=== PATIENT | male | born 2000 | race Two or more races ===

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

== ENCOUNTER 2024-03-10 12:35 | Inpatient (IN) | payer BC, OTHER ==
[~2024-03-10] VITALS: Ht 180.3 cm; Wt 130.1 kg
[2024-03-10] MEDS: MORPHINE SULFATE 4 MG/ML SYR/VIAL IM ONE (15:00)
[2024-03-10 16:18] LABS: Urine Bacteria None Seen /hpf (None Seen)
[2024-03-10] MEDS: TAMSULOSIN HYDROCHLORIDE 0.4 MG CAP PO ONE (16:30)
[2024-03-10] MEDS ORDERED: SODIUM CHLORIDE 0.9% 1,000 ML IV ONE (16:30)
[2024-03-10 16:34] LABS: Urine Amorphous Crystal FEW /hpf (None Seen); Urine Blood 3+ /uL (Negative); Urine Clarity Ex.Turbid (Clear); Urine Color Light-Orange (Yellow); Urine Mucus MODERATE (None Seen); Urine Protein, UAD 2+ (Negative); Urine Specific Gravity 1.033 (1.001-1.035); Urine Urobilinogen Normal (Negative); Urine WBC 1 /hpf (0 - 3); Urine pH 5.5 (5.0-9.0)
[2024-03-10 16:38] LABS: Basophils # (auto) 0 10 ^3/uL (0-0.2); Basophils % (auto) 0.1 % (0.0-2.0); Eosinophils # (auto) 0 10 ^3/uL (0-0.8); Eosinophils % (auto) 0.1 % (0.0-7.0); Hematocrit 46.8 % (41.0-53.0); Hemoglobin 15.4 g/dL (13.5-17.5); Lymphocytes % (auto) 8.6 % (10.0-50.0); Mean Corpuscular Hemoglobin 28.9 pg (28.0-32.0); Mean Corpuscular Volume 87.7 fL (80.0-100.0); Monocytes # (auto) 0.4 10 ^3/uL (0-1.3); Monocytes % (auto) 3.4 % (0.0-12.0); Neutrophils # (auto) 10.5 10 ^3/uL (1.6-8.6); Neutrophils % (auto) 87.8 % (37.0-80.0); Red Blood Cells 5.33 10^6/uL (4.5-5.90); Red Cell Distribution Width 13.5 % (11.8-14.3); White Blood Cell 11.9 10^3/uL (4.4-10.8)
[2024-03-10] MEDS: KETOROLAC TROMETH 30 MG/ML 1ML VIAL IM ONE (16:54)
[2024-03-10 16:58] LABS: Chloride 106 mmol/L (98-107); Potassium 3.9 mmol/L (3.5-5.1); Sodium 137 mmol/L (136-145)
[2024-03-10 16:59] LABS: Anion Gap 6 (5-15); Carbon Dioxide 25 mmol/L (20-30)
[2024-03-10 17:00] LABS: Calcium 9.5 mg/dL (8.7-10.4)
[2024-03-10] MEDS ORDERED: DOCUSATE SOD 100 MG CAP PO PRN (17:00)
[2024-03-10] MEDS ORDERED: ONDANSETRON HCL 4 MG/2 ML VIAL IV PRN (17:00)
[2024-03-10] MEDS: SODIUM CHLORIDE 0.9% 1,000 ML IV SCH (17:00)
[2024-03-10] MEDS ORDERED: MORPHINE SULFATE INJ 2 MG/ml SYRG IV PRN (17:00)
[2024-03-10 17:04] LABS: Glucose 127 mg/dL (74-106)
[2024-03-10 17:05] LABS: BUN/Creatinine Ratio 9.3 (10.0-20.0); Blood Urea Nitrogen 10 mg/dL (9-23); Lipase 38 U/L (12-53)
[2024-03-10] MEDS: SODIUM CHLORIDE 0.9% 1,000 ML IV ONE (17:20)
[2024-03-11] MEDS: KETOROLAC TROMETH 30 MG/ML 1ML VIAL IV SCH
[2024-03-11] MEDS: cefTRIAXone 1GM/50ML D5W 50 ML IV ONE (00:13)
[2024-03-11] MEDS: TAMSULOSIN HYDROCHLORIDE 0.4 MG CAP PO SCH (00:13)
[2024-03-11 04:54] LABS: Basophils # (auto) 0 10 ^3/uL (0-0.2); Basophils % (auto) 0.2 % (0.0-2.0); Eosinophils # (auto) 0 10 ^3/uL (0-0.8); Eosinophils % (auto) 0.3 % (0.0-7.0); Hematocrit 45.8 % (41.0-53.0); Hemoglobin 15.6 g/dL (13.5-17.5); Lymphocytes # (auto) 1.9 10 ^3/uL (0.4-5.4); Lymphocytes % (auto) 20.4 % (10.0-50.0); Mean Corpuscular Hemoglobin 30.2 pg (28.0-32.0); Mean Corpuscular Hgb Conc. 34.1 g/dL (32.0-36.0); Mean Corpuscular Volume 88.3 fL (80.0-100.0); Monocytes # (auto) 0.7 10 ^3/uL (0-1.3); Monocytes % (auto) 7.4 % (0.0-12.0); Neutrophils # (auto) 6.5 10 ^3/uL (1.6-8.6); Neutrophils % (auto) 71.7 % (37.0-80.0); Nucleated Red Blood Cells % 0.2 %; Red Blood Cells 5.19 10^6/uL (4.5-5.90); Red Cell Distribution Width 13.8 % (11.8-14.3); White Blood Cell 9.1 10^3/uL (4.4-10.8)
[2024-03-11 05:13] LABS: Alanine Aminotransferase 38 U/L (7-40); Albumin 4.4 g/dL (3.2-4.8); Alkaline Phosphatase 86 U/L (46-116); Anion Gap 10 (5-15); Aspartate Aminotransferase 31 U/L (13-40); BUN/Creatinine Ratio 8.2 (10.0-20.0); Bilirubin, Total 1.9 mg/dL (0.2-1.0); Blood Urea Nitrogen 7 mg/dL (9-23); Calcium 9.2 mg/dL (8.5-10.1); Carbon Dioxide 23 mmol/L (20-30); Chloride 105 mmol/L (98-107); Glucose 98 mg/dL (74-106); Potassium 3.9 mmol/L (3.5-5.1); Sodium 138 mmol/L (136-145); Total Protein 7.3 g/dL (5.7-8.2)
[2024-03-11 09:00] VITALS: BP 149/85; PULSE 98; RESP 20; TEMP 98.9; O2SAT 97
[2024-03-11] MEDS: cefTRIAXone 1GM/50ML D5W 50 ML IV SCH (11:09)
[2024-03-11 13:00] VITALS: BP 115/63; PULSE 96; RESP 20; TEMP 99; O2SAT 98
[2024-03-11] MEDS ORDERED: MANNITOL FTV 25% 12.5 GM/50 ML 50 ML IV ONE (13:00)
[2024-03-11 13:52] VITALS: BP 149/85; PULSE 98; RESP 20; TEMP 98.9; O2SAT 97
[2024-03-11] MEDS ORDERED: TAMS-35 PO (14:16)
[2024-03-11 17:00] VITALS: BP 118/75; PULSE 90; RESP 20; TEMP 98.7; O2SAT 98
[2024-03-11 17:43] VITALS: BP 118/75; PULSE 90; RESP 20; TEMP 98.7; O2SAT 98
== END 2024-03-11 18:45 | disposition home or self-care (01) | DRG 694 ==
LOC: ER 12:35 → OVERFLOW 17:48 → WEST WING 03-11 09:04
PROVIDERS: ADMIT Nurse Practitioner Family; ATTEND Internal Medicine
DX: N13.2 Hydronephrosis with renal and ureteral calculous obstruction (principal); Z68.41 Body mass index [BMI] 40.0-44.9, adult; J45.909 Unspecified asthma, uncomplicated; D72.829 Elevated white blood cell count, unspecified; K76.0 Fatty (change of) liver, not elsewhere classified; K57.30 Diverticulosis of large intestine without perforation or abscess without bleeding; E86.0 Dehydration; E66.01 Morbid (severe) obesity due to excess calories; K44.9 Diaphragmatic hernia without obstruction or gangrene; Z87.442 Personal history of urinary calculi; Z87.891 Personal history of nicotine dependence
CPT/HCPCS: 36415; 74176; 80048; 80053; 81001; 83690; 85025; 96360; 96372; G0378; J1885